=== PATIENT | male | born 1955 | race Caucasian/White ===

== ENCOUNTER → 2023-02-09 09:35 | Outpatient (CLI) | payer MEDICARE, OTHER, SELFPAY ==
--- NOTE | 2023-02-09 09:38 | DI.RAD.S_ITS ---
PROCEDURE: XR KNEE LT 3V INDICATIONS: pain x 6 months. TECHNIQUE: 3 views of the knee were acquired. COMPARISON: None. FINDINGS: Bones: No fractures or dislocations. No suspicious bony lesions. Soft tissues: Moderate to large suprapatellar joint effusion. No suspicious soft tissue calcifications. IMPRESSION: No left knee fracture or dislocation. Moderate to large joint effusion. Consider MRI of knee for further evaluation of internal derangement. Dictated by: Gustavo Pierce M.D. on 02/09/2023 at 10:39 Approved by: Gustavo Pierce M.D. on 02/09/2023 at 10:39
== END ==
PROVIDERS: PCP Family Medicine; Referring Provider Family Medicine; Visit Provider Family Medicine
DX: M25.562 Pain in left knee (principal); M25.462 Effusion, left knee
CPT/HCPCS: 73562

== ENCOUNTER → 2023-04-13 07:06 | Outpatient (CLI) | payer MEDICARE, OTHER, SELFPAY ==
--- NOTE | 2023-04-13 07:07 | DI.MRI.S_ITS ---
PROCEDURE: MR KNEE LT WO CON INDICATIONS: persistent Lt knee pain TECHNIQUE: Noncontrast sagittal PD fast spin echo and T2 fast spin echo with fat saturation, sagittal 3-D FLASH with fat saturation; coronal T1 spin echo and PD fast spin echo with fat saturation, and axial PD fast spin echo with fat saturation through the knee. COMPARISON: [facility], CR, XR KNEE LT 3V, 02/09/2023, 9:34. FINDINGS: Image quality: Excellent. Menisci: Medial extrusion of the medial meniscus is present. Linear oblique and amorphous high signal intensity within the inner, middle, and peripheral thirds of the medial meniscal body and posterior horn, demonstrating superior and inferior articular surface extension, indicating complex tearing. Lateral meniscus is intact. Cruciate ligaments: The anterior and posterior cruciate ligaments appear intact. Medial structures: The medial collateral ligament appears intact. Visualized portions of the pes anserinus tendons appear normal. No abnormal bursal fluid. Lateral structures: The lateral collateral ligament, long and short heads of the biceps femoris tendon appear intact. The popliteus tendon appears normal. Iliotibial band appears normal. Anterior structures: The quadriceps and patellar tendons appear intact. Patellar alignment is normal. No femoral trochlear dysplasia or ventral trochlear prominence. No edema in the infrapatellar fat pad. Bones and cartilage: There is moderate ill-defined T2 signal elevation within the mid weight-bearing aspects of the medial femoral condyle and medial tibial plateau. Mild subchondral degenerative marrow edema within the lateral patellar facet. Mild tricompartmental periarticular osteophyte formation. Severe articular cartilage loss diffusely overlies the weight-bearing aspects of the medial femoral condyle and medial tibial plateau. Mild articular cartilage loss diffusely overlies the weight-bearing aspects of the lateral femoral condyle and lateral tibial plateau. Articular cartilage fibrillation overlies the patellar apex and lateral patellar facet. Joint space: There is a moderate knee joint effusion and a small Welsh's cyst. Normal appearing synovial plicae are incidentally noted. IMPRESSION: 1. Tricompartmental osteoarthritis with associated articular cartilage loss. 2. Complex tearing of the medial meniscus. 3. Knee joint effusion and Welsh's cyst. Dictated by: Hood Talbot M.D. on 04/13/2023 at 9:33 Approved by: Hood Talbot M.D. on 04/13/2023 at 9:36
== END ==
PROVIDERS: PCP Family Medicine; Referring Provider Family Medicine; Visit Provider Family Medicine
DX: S83.232A Complex tear of medial meniscus, current injury, left knee, initial encounter (principal); M17.12 Unilateral primary osteoarthritis, left knee; M25.569 Pain in unspecified knee; M25.462 Effusion, left knee; M71.22 Synovial cyst of popliteal space [Baker], left knee
CPT/HCPCS: 73721

== ENCOUNTER → 2023-08-18 15:07 | Outpatient (CLI) | payer MEDICARE, OTHER, SELFPAY ==
[2023-08-18 17:56] LABS: Add Manual Diff / Slide Review NO; Basophils Absolute Auto 100 /uL (0-100); Basophils Percent Auto 0.8 % (0-2); Eosinophils Absolute Auto 100 /uL (0-450); Eosinophils Percent Auto 1.8 % (2-4); Hemoglobin 14.9 g/dL (13.5-17.5); Lymphocytes Absolute Auto 1800 /uL (1100-4500); Lymphocytes Percent Auto 29.4 % (25-40); Mean Corpuscular HGB Conc 33.8 % (30-36); Mean Corpuscular Hemoglobin 29.8 PG (26-34); Mean Corpuscular Volume 88.3 fL (80-100); Monocytes Absolute Auto 600 /uL (0-900); Neutrophils Absolute Auto 3600 /uL (1500-7000); Platelet Count 202 X10^3/uL (150-400); Red Blood Cell Count 4.99 X10^6/uL (4.5-5.9); Red Cell Distribution Width 14.1 % (11.6-14.8); White Blood Cell Count 6.2 X10^3/uL (4.5-11.0)
[2023-08-18 18:05] LABS: Hemoglobin A1C% w Est Avg Glu 5.6 % (4.0-6.0)
[2023-08-18 18:08] LABS: Alanine Aminotransferase 23 IU/L (<50); Albumin 4.4 g/dL (3.5-5.0); Albumin Globulin Ratio 1.5 (1.0-2.8); Alkaline Phosphatase 57 U/L (38-126); Aspartate Aminotransferase 33 IU/L (17-59); Blood Urea Nitrogen 18 mg/dL (9-20); Calcium 9.5 mg/dL (8.4-10.2); Carbon Dioxide 30 mmol/L (22-32); Chloride 102 mmol/L (98-107); Cholesterol 169 mg/dL (140-199); Estimated Glomerular Filt Rate > 60 mL/min (>60); Glucose 82 mg/dL (80-110); HDL Cholesterol 92 mg/dL (40-60); HEMOLYSIS < 15 (0-50); LDL Cholesterol Calculated 64 mg/dL (<100); Potassium 4.4 mmol/L (3.4-5.1); Sodium 136 mmol/L (137-145); Total Protein 7.4 g/dL (6.3-8.2); Triglycerides 64 mg/dL (35-150)
[2023-08-18 18:39] LABS: Prostate Specific Antigen Scrn 1.37 ng/mL (0.1-4.0)
== END ==
LOC: RESP 15:09
PROVIDERS: PCP Family Medicine; Referring Provider Family Medicine; Visit Provider Family Medicine
DX: Z00.00 Encounter for general adult medical examination without abnormal findings (principal); Z01.818 Encounter for other preprocedural examination; E78.5 Hyperlipidemia, unspecified; I10 Essential (primary) hypertension; Z12.5 Encounter for screening for malignant neoplasm of prostate
CPT/HCPCS: 36415; 80053; 80061; 83036; 85025; 93005; G0103

== ENCOUNTER 2024-03-30 06:41 | Day surgery (SDC) | payer MEDICARE, OTHER, SELFPAY ==
[2024-03-30 07:04] VITALS: BP 145/82; PULSE 69; RESP 18; TEMP 36.2; O2SAT 99
[2024-03-30] MEDS: LACTATED RINGERS 1,000 ML 42 ML IV (07:10)
--- NOTE | 2024-03-30 07:35 | PM.HP.1 ---
History of Present Illness History of Present Illness Date Patient Seen: 03/30/24 Time Patient Seen: 07:35 Chief complaint: EGD & Colonoscopy w/poss bx's Narrative: Leonid is a 68-year-old man with dysphagia and a history of polyps. See the prior office note for details. [facility] Medical History Benign essential HTN Encounter for subsequent annual wellness visit (AWV) in Medicare patient Acne (~1969) History of multiple concussions Chicken pox (~1964) GERD (gastroesophageal reflux disease) (~1999) Esophageal ring (~2009) Surgical History Anesthesia History of appendectomy (~1971) Family History Father History of heart disease Mother History of heart disease Sister History of heart disease Grandmother History of heart disease Social History Smoking Status: Former smoker alcohol intake: current Meds Home Medications and Allergies Home Medications Medication Instructions Recorded Confirmed Type losartan 25 mg tablet 25 mg PO DAILY blood pressure #90 08/18/23 03/30/24 Rx tabs rosuvastatin 40 mg tablet 40 mg PO DAILY #90 tabs 08/18/23 03/30/24 Rx amoxicillin 500 mg-potassium 1 tab PO Q12H #3 tabs 03/29/24 03/30/24 Rx clavulanate 125 mg tablet (Augmentin) aspirin 81 mg tablet 81 mg PO DAILY 03/30/24 03/30/24 History Allergies Allergy/AdvReac Type Severity Reaction Status Date / Time No Known Drug Allergies Allergy Verified 03/30/24 07:00 Exam Vital Signs (past 8 hours): - 03/30/24 07:04 Temperature 97.1 F L Pulse Rate 69 Respiratory Rate 18 Blood Pressure 145/82 H Pulse Oximetry 99 Oxygen Delivery Method Room Air Oxygen Delivery Method Room Air Const General: healthy appearing Assessment & Plan Assessment and plan (1) Dysphagia: Qualifiers: Dysphagia type: esophageal phase Qualified Code(s): R13.19 - Other dysphagia Status: Acute (2) History of colon polyps: Status: Acute Plan We reviewed the risks and benefits of EGD with possible dilation and colonoscopy and he would like to proceed. Time-Based Coding :: [TOTAL MINUTES] spent with patient and on the chart (including review of chart, obtaining history, exam, reviewing outside data, placing orders, documenting exam and treatment plan, and counseling patient) on [DATE].
[2024-03-30 08:08] VITALS: BP 104/73; PULSE 68; RESP 17; TEMP 36.2; O2SAT 94
[2024-03-30 08:13] VITALS: BP 105/74; PULSE 67; RESP 14; O2SAT 93
--- NOTE | 2024-03-30 08:13 | PM.OP.EC ---
Operative Date/Time/Diagnoses Date of procedure: 03/30/24 Time of procedure: 08:13 Pre-op diagnosis: Dysphagia and history of polyps Post-op diagnosis: same Procedure & Clinicians Study performed: EGD and colonoscopy Same procedure as scheduled: Yes Surgeon: Alexander Guillermo Procedure Notes Procedure in detail: Surgeon: Alexander Guillermo MD Anesthesia: Luz Elena Louis CRNA Procedure in detail: A timeout was performed. A bite blocked was placed and monitors were attached to the patient. The patient was positioned in the left lateral decubitus position. Sedation was administered. Once the patient was sedated the endoscope was inserted through the bite block and passed through the esophagus and stomach and into the duodenum. No abnormalities were identified. We then withdrew the scope into the stomach. No abnormalities were identified in the stomach. The endoscope was retroflexed and no hiatal hernia was seen. The endoscope was straightned and withdrawn into the esophagus. There were no abnormalities in the esophagus. Specifically, there was no stricture or esophagitis. EGD findings: Normal EGD Next we repositioned the patient for a colonoscopy. A digital rectal exam was performed and was normal. The colonoscope was inserted and advanced to the cecum. The appendiceal orifice was identified and photographed. The scope was slowly withdrawn over greater than 6 minutes. No polyps were identified. There was moderate sigmoid colon diverticulosis. The scope was retroflexed in the rectum and some internal hemorrhoids were noted. Colonoscopy findings: Moderate sigmoid colon diverticulosis, internal hemorrhoids Total procedural EBL: 0 Scope withdrawal time: [] Sedation minutes: [] Post-procedure Recommendations: Colonscopy in 10 years Disposition: PACU
[2024-03-30 08:18] VITALS: BP 131/68; PULSE 67; RESP 10; O2SAT 97
[2024-03-30 08:24] VITALS: BP 114/91; PULSE 60; RESP 12; TEMP 36.2; O2SAT 98
== END 2024-03-30 08:45 | disposition home or self-care (01) ==
PROVIDERS: PCP Family Medicine; Referring Provider Surgery; Visit Provider Surgery
PROC: 0DJ08ZZ Inspection of Upper Intestinal Tract, Via Natural or Artificial Opening Endoscopic (ICD-10-PCS; CPT 43235; principal; 2024-03-30 07:45)
PROC: 0DJD8ZZ Inspection of Lower Intestinal Tract, Via Natural or Artificial Opening Endoscopic (ICD-10-PCS; CPT 45378; 2024-03-30 07:45)
DX: R13.19 Other dysphagia (principal); Z86.010 Personal history of colon polyps; K57.30 Diverticulosis of large intestine without perforation or abscess without bleeding; K64.8 Other hemorrhoids
CPT/HCPCS: 45378; 43235; J2704

== ENCOUNTER → 2024-08-10 10:39 | Outpatient (CLI) | payer MEDICARE, OTHER, SELFPAY ==
[2024-08-10 12:15] LABS: Alanine Aminotransferase 31 IU/L (<50); Albumin 4.6 g/dL (3.5-5.0); Albumin Globulin Ratio 1.8 (1.0-2.8); Alkaline Phosphatase 55 U/L (38-126); Aspartate Aminotransferase 46 IU/L (17-59); Bilirubin Total 1.1 mg/dL (0.2-1.3); Blood Urea Nitrogen 16 mg/dL (9-20); Calcium 9.2 mg/dL (8.4-10.2); Carbon Dioxide 29 mmol/L (22-32); Chloride 103 mmol/L (98-107); Cholesterol 170 mg/dL (140-199); Estimated Glomerular Filt Rate > 60 mL/min (>60); Globulin 2.6 g/dL (1.7-4.1); Glucose 120 mg/dL (80-110); HDL Cholesterol 106 mg/dL (40-60); HEMOLYSIS < 15 (0-50); LDL Cholesterol Calculated 53 mg/dL (<100); Potassium 4.6 mmol/L (3.4-5.1); Sodium 137 mmol/L (137-145); Total Protein 7.2 g/dL (6.3-8.2); Triglycerides 54 mg/dL (35-150)
[2024-08-10 12:45] LABS: Prostate Specific Antigen Scrn 1.76 ng/mL (0.1-4.0)
[2024-08-10 17:08] LABS: Hep C Virus Ab w/Reflex Quant NEGATIVE s/c (NEGATIVE)
== END ==
PROVIDERS: PCP Family Medicine; Referring Provider Family Medicine; Visit Provider Family Medicine
DX: Z00.00 Encounter for general adult medical examination without abnormal findings (principal); I10 Essential (primary) hypertension; Z12.5 Encounter for screening for malignant neoplasm of prostate
CPT/HCPCS: 36415; 80053; 80061; 86803; G0103

== ENCOUNTER 2024-08-17 20:38 | Emergency (ER) | payer MEDICARE, OTHER, SELFPAY ==
[2024-08-17] VITALS (8 sets, daily range): BP systolic 122–152; BP diastolic 67–83; PULSE 65–80; RESP 15–26; TEMP 36.4; O2SAT 94–99; BMI 24.3
--- NOTE | 2024-08-17 20:41 | EKG_ITS ---
[address] [address] [place] [address] Test Date: 2024-08-17 Pat Name: Shukri Hensley Department: [facility] Room: Gender: Male [employer] Agent: CAROLINE MIR : 1955 Requested By: Order Number: [id number] Reading MD: Iglesia Smiley Measurements Intervals [place] Rate: 70 P: VT: QRS: 46 QRSD: 94 T: 12 QT: 376 QTc: 406 Interpretive Statements Atrial fibrillation Incomplete right bundle branch block Electronically Signed On 08-18-2024 12:55:41 PST by Iglesia Smiley
--- NOTE | 2024-08-17 20:54 | DI.RAD.S_ITS ---
PROCEDURE: XR CHEST 1V INDICATIONS: Atrial fibrillation TECHNIQUE: One view of the chest was acquired. COMPARISON: None. FINDINGS: Surgical changes and devices: None. Lungs and pleura: Lungs are clear. No pleural effusions or pneumothorax. Mediastinum: Mediastinal contours appear normal. Heart size is normal. Bones and chest wall: No suspicious bony lesions. Overlying soft tissues appear unremarkable. IMPRESSION: No acute pulmonary process. Dictated by: Génesis Johnson M.D. on 08/17/2024 at 21:22 Approved by: Génesis Johnson M.D. on 08/17/2024 at 21:23
[2024-08-17 21:03] LABS: Add Manual Diff / Slide Review NO; Basophils Absolute Auto 100 /uL (0-100); Basophils Percent Auto 1.1 % (0-2); Eosinophils Absolute Auto 200 /uL (0-450); Eosinophils Percent Auto 2.5 % (2-4); Hematocrit 45.6 % (41-53); Hemoglobin 15.4 g/dL (13.5-17.5); Lymphocytes Absolute Auto 2300 /uL (1100-4500); Lymphocytes Percent Auto 34.9 % (25-40); Mean Corpuscular HGB Conc 33.7 % (30-36); Mean Corpuscular Hemoglobin 31.1 PG (26-34); Mean Corpuscular Volume 92.2 fL (80-100); Monocytes Absolute Auto 800 /uL (0-900); Monocytes Percent Auto 11.7 % (3-14); Neutrophils Absolute Auto 3300 /uL (1500-7000); Neutrophils Percent Auto 49.8 % (50-75); Platelet Count 208 X10^3/uL (150-400); Red Blood Cell Count 4.95 X10^6/uL (4.5-5.9); Red Cell Distribution Width 13.7 % (11.6-14.8); White Blood Cell Count 6.7 X10^3/uL (4.5-11.0)
[2024-08-17 21:15] LABS: Alanine Aminotransferase 32 IU/L (<50); Albumin 4.7 g/dL (3.5-5.0); Albumin Globulin Ratio 1.7 (1.0-2.8); Alkaline Phosphatase 47 U/L (38-126); Aspartate Aminotransferase 38 IU/L (17-59); BUN Creatinine Ratio 19.8 (6-22); Bilirubin Total 0.6 mg/dL (0.2-1.3); Blood Urea Nitrogen 19 mg/dL (9-20); Calcium 9.4 mg/dL (8.4-10.2); Carbon Dioxide 28 mmol/L (22-32); Chloride 104 mmol/L (98-107); Creatine Kinase 200 U/L (55-170); Estimated Glomerular Filt Rate > 60 mL/min (>60); Globulin 2.7 g/dL (1.7-4.1); Glucose 94 mg/dL (80-110); HEMOLYSIS 16 (0-50); Lipase 80 U/L (23-300); Magnesium 1.8 mg/dL (1.6-2.3); Potassium 4.8 mmol/L (3.4-5.1); Sodium 140 mmol/L (137-145); Total Protein 7.4 g/dL (6.3-8.2)
[2024-08-17 21:27] LABS: Troponin I < 0.012 ng/mL (0.01-0.034)
--- NOTE | 2024-08-17 21:41 | ED_ITS ---
HPI - Arrhythmia/Palpitations General Chief Complaint: Arrhythmia/Palpitations Stated Complaint: watch says he is in AFib Time Seen by Provider: 08/17/24 20:53 Source: patient and family Mode of arrival: Ambulatory History of Present Illness HPI narrative: patient was a 69-year-old male. No prior history of atrial fibrillation. No prior history of coronary artery disease. Is here for evaluation of potentially being in AFib. He states that his happen watch alarm earlier today stating that he was in an irregular heart rhythm. He states the time he was not feeling palpitations. Has had some occasional lightheadedness today but nothing currently. No chest pain. No shortness of breath. No lower extremity swelling. He states he does not feel like his heart is beating fast. Related Data Home Medications Medication Instructions Recorded Confirmed aspirin 81 mg tablet 81 mg PO DAILY 03/30/24 08/17/24 Previous Rx's Medication Instructions Recorded losartan 25 mg tablet 25 mg PO DAILY blood pressure #90 08/17/24 tabs rosuvastatin 40 mg tablet 40 mg PO DAILY #90 tabs 08/17/24 apixaban 5 mg tablet (Eliquis) 5 mg PO BID #60 tabs 08/18/24 metoprolol succinate 25 mg 25 mg PO DAILY #30 tabs 08/18/24 tablet,extended release 24 hr Allergies Allergy/AdvReac Type Severity Reaction Status Date / Time No Known Drug Allergies Allergy Verified 08/17/24 10:20 Review of Systems Review of Systems ROS Unobtainable: All systems reviewed & are unremarkable except as noted in HPI and below Patient History Medical History Hyperlipidemia, unspecified Benign essential HTN Encounter for subsequent annual wellness visit (AWV) in Medicare patient Acne (~1969) History of multiple concussions Chicken pox (~1964) GERD (gastroesophageal reflux disease) (~1999) Esophageal ring (~2009) Surgical History Anesthesia History of appendectomy (~1971) Family History Father History of heart disease Mother History of heart disease Sister History of heart disease Grandmother History of heart disease Social History Smoking Status: Former smoker alcohol intake: current Smoking Status: Former smoker alcohol intake frequency: 0-2 drinks per day Exam Initial Vital Signs Initial Vital Signs: Vital Signs Temperature 97.5 F L 08/17/24 20:42 Pulse Rate 65 08/17/24 20:42 Respiratory Rate 18 08/17/24 20:42 Blood Pressure 152/83 H 08/17/24 20:42 Pulse Oximetry 97 08/17/24 20:42 Oxygen Delivery Method Room Air 08/17/24 20:42 Const General: cooperative, comfortable and No ill appearing HENMT Head: normal to inspection and normocephalic Resp Effort & Inspection: normal respiratory effort Auscultation: clear to auscultation bilaterally Cardio Rate: regular rate Rhythm: abnormal rhythm GI Inspection: normal to inspection Skin General: no rashes or lesions noted Neuro General: patient alert, patient awake, patient oriented x3 and moves all extremities Extrem General: normal to inspection and capillary refill normal Course Orders Ordered: ED Orders 08/17/24 20:41 EKG-12 Lead Stat 08/17/24 20:54 XR chest 1V Stat 08/17/24 20:55 Complete Blood Count AUTO DIFF Stat Comprehensive Metabolic Panel Stat Lipase Stat Magnesium Stat TSH [Thyroid Stimulating Hormone] Stat Troponin & CK Cardiac Panel Stat 08/17/24 23:05 Troponin & CK Cardiac Panel Stat Discontinued Medications Apixaban (Apixaban 5 Mg Tablet) 5 mg PO NOW ONE Stop: 08/18/24 00:10 Last Admin: 08/18/24 00:15 Dose: 5 mg Documented By: TERRY Metoprolol Succinate (Metoprolol Er 25 Mg Tablet) 25 mg PO NOW ONE Stop: 08/18/24 00:10 Last Admin: 08/18/24 00:15 Dose: 25 mg Documented By: TERRY Vital Signs Vital signs: Vital Signs - 8 hr 08/17/24 20:42 08/17/24 20:57 08/17/24 21:00 Temperature 97.5 F L Pulse Rate 65 77 73 Respiratory Rate 18 26 H 23 Blood Pressure 152/83 H Pulse Oximetry 97 99 99 Oxygen Delivery Method Room Air 08/17/24 21:30 08/17/24 22:00 08/17/24 23:00 Temperature Pulse Rate 80 72 76 Respiratory Rate 25 H 21 15 Blood Pressure Pulse Oximetry 95 94 94 Oxygen Delivery Method 08/17/24 23:07 08/17/24 23:07 08/17/24 23:30 Temperature Pulse Rate 74 Respiratory Rate 22 Blood Pressure 130/67 122/71 Pulse Oximetry 96 Oxygen Delivery Method Room Air 08/17/24 23:30 08/18/24 00:00 08/18/24 00:00 Temperature Pulse Rate 75 79 Respiratory Rate 15 18 Blood Pressure 117/77 Pulse Oximetry 95 96 Oxygen Delivery Method 08/18/24 00:15 Temperature Pulse Rate 77 Respiratory Rate Blood Pressure 117/77 Pulse Oximetry Oxygen Delivery Method MDM - Arrhythmia/Palpitations Lab Data Attestation: I reviewed the patient's lab results. 08/17/24 20:55 08/17/24 20:55 Labs: Lab Results 08/17/24 08/17/24 Range/Units 20:55 23:05 WBC 6.7 (4.5-11.0) X10^3/uL RBC 4.95 (4.5-5.9) X10^6/uL Hgb 15.4 (13.5-17.5) g/dL Hct 45.6 (41-53) % MCV 92.2 (80-100) fL MCH 31.1 (26-34) PG MCHC 33.7 (30-36) % RDW 13.7 (11.6-14.8) % Plt Count 208 (150-400) X10^3/uL Neut % (Auto) 49.8 L (50-75) % Lymph % (Auto) 34.9 (25-40) % [place] % (Auto) 11.7 (3-14) % Eos % (Auto) 2.5 (2-4) % Baso % (Auto) 1.1 (0-2) % Neut # (Auto) 3300 (0640-8143) /uL Lymph # (Auto) 2300 (1115-4423) /uL [place] # (Auto) 800 (0-900) /uL Eos # (Auto) 200 (0-450) /uL Baso # (Auto) 100 (0-100) /uL Sodium 140 (137-145) mmol/L Potassium 4.8 (3.4-5.1) mmol/L Chloride 104 (98-107) mmol/L Carbon Dioxide 28 (22-32) mmol/L BUN 19 (9-20) mg/dL Creatinine 0.96 (0.66-1.25) mg/dL Estimated GFR > 60 (>60) mL/min BUN/Creatinine Ratio 19.8 (6-22) Glucose 94 (80-110) mg/dL Calcium 9.4 (8.4-10.2) mg/dL Magnesium 1.8 (1.6-2.3) mg/dL Total Bilirubin 0.6 (0.2-1.3) mg/dL AST 38 (17-59) IU/L ALT 32 (<50) IU/L Alkaline Phosphatase 47 (38-126) U/L Total Creatine Kinase 200 H 197 H (55-170) U/L Troponin I < 0.012 < 0.012 (0.01-0.034) ng/mL Total Protein 7.4 (6.3-8.2) g/dL Albumin 4.7 (3.5-5.0) g/dL Globulin 2.7 (1.7-4.1) g/dL Albumin/Globulin Ratio 1.7 (1.0-2.8) Lipase 80 (23-300) U/L TSH 2.33 (0.47-4.68) uIU/mL Imaging Data Chest x-ray: Radiologist's Impresson: PROCEDURE: XR CHEST 1V INDICATIONS: Atrial fibrillation TECHNIQUE: One view of the chest was acquired. COMPARISON: None. FINDINGS: Surgical changes and devices: None. Lungs and pleura: Lungs are clear. No pleural effusions or pneumothorax. Mediastinum: Mediastinal contours appear normal. Heart size is normal. Bones and chest wall: No suspicious bony lesions. Overlying soft tissues appear unremarkable. IMPRESSION: No acute pulmonary process. ECG Data Attestation: I personally reviewed and interpreted this ECG as follows: Interpretation: Atrial fibrillation Ventricular rate is 70 Normal axis Normal QRS Normal QTC No ST T wave changes MDM Narrative Medical decision making narrative: Patient is in atrial fibrillation but is rate controlled. Blood pressure is unremarkable. He was relatively asymptomatic and states he was not feeling palpitations or chest pain or lightheadedness currently. His watch informed him that he went into AFib at about 530 this afternoon although we can not be convinced his to when he exactly went into AFib. He did have a routine appointment with his primary doctor earlier in the day where he states that they did listen to his heart but no EKG was performed. Because of the uncertainty as to when he went into AFib he was not a candidate for cardioversion here in the emergency department. His labs and troponin are unremarkable. He was no signs of an infection. Low suspicion for ACS. Will place the patient on metoprolol and Eliquis. Because he was stable and rate controlled patient can follow-up as an outpatient. Recommended that he contact Cardiology and also his primary doctor for a follow-up. He expressed understanding and agreement with the plan. Discharge Plan Departure Patient Disposition: Home Clinical Impression: Atrial fibrillation Instructions: DI for Atrial Fibrillation Activity Restrictions/Additional Instructions: Continue to take all of your medications as directed. We are going to start you on 2 new medications. The 1st medication is called metoprolol. This is 1 time a day. This will help with keeping your heart rate low. The 2nd medicine is called Eliquis/apixaban. This is a blood thinner. This medication is taken twice a day. This medication can be very expensive so I recommend that you look up? Eliquis co-pay card? and fell out the information. This will provide information for you in order to receive the medication at a significant discount. I also recommend you contact your primary care doctor in the sql ssrs ssis developer below for a follow-up. Return to the emergency department for new symptoms to include chest pain, lightheadedness, shortness of breath or persistent heart rate greater than 100 beats per minute Prescriptions: New Eliquis 5 mg tablet 5 mg PO BID Qty: 60 0RF metoprolol succinate 25 mg tablet extended release 24 hr 25 mg PO DAILY Qty: 30 0RF No Action losartan 25 mg tablet 25 mg PO DAILY Qty: 90 3RF rosuvastatin 40 mg tablet 40 mg PO DAILY Qty: 90 3RF aspirin 81 mg Tablet 81 mg PO DAILY Referrals: Agatha Thornton MD [Physician] - Leatha Luke DO [Primary Care Provider] - Stand Alone Forms: Patient Portal/API/Survey
[2024-08-17 22:28] LABS: Thyroid Stimulating Hormone 2.33 uIU/mL (0.47-4.68)
[2024-08-17 23:24] LABS: Creatine Kinase 197 U/L (55-170)
[2024-08-17 23:37] LABS: Troponin I < 0.012 ng/mL (0.01-0.034)
[2024-08-18] VITALS: BP 117/77; PULSE 79; RESP 18; O2SAT 96
[2024-08-18 00:15] VITALS: BP 117/77; PULSE 77
[2024-08-18] MEDS: METOPROLOL ER 25 MG TABLET PO (00:15)
[2024-08-18] MEDS: APIXABAN 5 MG TABLET PO (00:15)
== END 2024-08-18 00:28 | disposition home or self-care (01) ==
PROVIDERS: Emergency Provider Emergency Medicine; PCP Family Medicine
DX: I48.91 Unspecified atrial fibrillation (principal); Z79.01 Long term (current) use of anticoagulants; I10 Essential (primary) hypertension
CPT/HCPCS: 36415; 71045; 80053; 82550; 83690; 83735; 84443; 84484; 85025; 93005; 99284

== ENCOUNTER → 2024-09-11 06:50 | Outpatient (CLI) | payer MEDICARE, OTHER, SELFPAY ==
--- NOTE | 2024-09-11 06:51 | DI.ECHO.S_ITS ---
[facility]+ [facility] : : [address] : : [place] : : [id number] : : Phone: [phone] Echocardiogram Report + + :Name: JOHN BARBOSA JR Study Date: 09/11/2024 Height: 74 in : :[facility] ReadingLocation: Weight: 190 lb : : Gender: Male BSA: 2.1 m2 : :: 1955 Age: 69 yrs BP: 149/96 mmHg: :Reason For Study: ATRIAL FIBRILLATION : :Ordering Physician: FARIDEH NEWSOME Performed By: Lionel Polanco : :Referring: FARIDEH NEWSOME : + + Interpretation Summary The left ventricle is normal in size. Left ventricular systolic function is mildly reduced. The ejection fraction is estimated to be 40-45%. Diastolic function could not be accurately assessed due to atrial fibrillation. The right ventricle is normal size. Right ventricular systolic function is mildly reduced. The right ventricular systolic pressure is estimated to be at least 25 mmHg based on an estimated right atrial pressure of 3 mm Hg. The left atrium is severely dilated. The right atrium is severely dilated. There is mild mitral regurgitation. There is no other significant valvular heart disease. The aortic root is normal size. A-fib is present with mild RVR. 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 Procedure: A two-dimensional transthoracic echocardiogram with color flow and Doppler was performed. The study quality was technically good. There is no prior echocardiogram noted for this patient. The patient was in atrial fibrillation with heart rates between 70-108 bpm during the exam. Left Ventricle: The left ventricle is normal in size. Left ventricular wall thickness is mildly increased. There is no ventricular septal defect visualized. Left ventricular systolic function is mildly reduced. The ejection fraction is estimated to be 40-45%. There is mild global hypokinesis of the left ventricle. Diastolic function could not be accurately assessed due to atrial fibrillation. Right Ventricle: The right ventricle is normal size. Right ventricular systolic function is mildly reduced. Atria: The left atrium is severely dilated. The right atrium is severely dilated. The interatrial septum grossly appears intact with no obvious evidence for an atrial septal defect. Mitral Valve: The mitral valve leaflets appear mildly thickened, but open well. The mitral valve leaflets are slightly calcified. There is mild mitral regurgitation. Aortic Valve: The aortic valve is trileaflet. The aortic valve opens well. No aortic regurgitation is present. Tricuspid Valve: The tricuspid valve leaflets are thickened and/or calcified, but open well. There is trace tricuspid regurgitation. The right ventricular systolic pressure is estimated to be at least 25 mmHg based on an estimated right atrial pressure of 3 mm Hg. Pulmonic Valve: The pulmonic valve leaflets are thin and pliable; valve motion is normal. There is a trace or physiologic amount of pulmonic regurgitation. There is no other significant valvular heart disease. Great Vessels: The aortic root is normal size. The dimensions of the ascending aorta are normal. The pulmonary artery is normal size. The IVC is of normal diameter and collapses greater than 50% with a sniff. This suggests a low right atrial pressure of 3 mm Hg. Pericardium/ Pleura There is no pericardial effusion. There is no pleural effusion. MMode/2D Measurements & Calculations LVIDd: 4.9 cm LVOT diam: 2.4 cm LVIDs: 3.4 cm Ao root diam: 3.6 cm FS: 30.5 % asc Aorta Diam: 3.2 cm EPSS: 0.98 cm IVSd: 1.2 cm LVPWd: 1.2 cm LV davies. diameter/BSA (cm/m^2): 2.3 LV sys. diameter/BSA (cm/m^2): 1.6 LA A2 area: 30.0 cm2 RA long axis: 6.8 cm LA A4 area: 31.7 cm2 RA area: 30.5 cm2 LA length (vol): 7.3 cm RA vol: 115.5 ml LA vol: 110.6 ml RA : 54.3 ml/m2 LA vol index: 52.0 ml/m2 IVC diam: 1.8 cm RVD1 (basal): 3.8 cm RVD2 (mid): 2.9 cm TAPSE: 1.6 cm Doppler Measurements & Calculations Ao V2 max: 112.5 cm/sec LVOT Max Patel: 90.2 cm/sec Ao V2 mean: 81.8 cm/sec LV V1 max P.3 mmHg Ao max P.1 mmHg LV V1 VTI: 15.3 cm Ao mean P.9 mmHg BRIDGER(I,D): 2.9 cm2 Ao V2 VTI: 23.3 cm BRIDGER(V,D): 3.5 cm2 sev ratio: 0.65 BRIDGER indexed to BSA (cm^2/m^2): 1.4 MV E max patel: 64.6 cm/sec TR max patel: 237.1 cm/sec MV A max patel: 12.3 cm/sec TR max P.5 mmHg MV E/A: 5.2 PA V2 max: 62.3 cm/sec Med Peak E' Patel: 8.3 cm/sec PA V2 mean: 41.0 cm/sec E/E' med: 7.8 PA mean P.76 mmHg Lat Peak E' Patel: 15.9 cm/sec PA pr(Accel): 5.4 mmHg E/E' lat: 4.1 E/e' average: 5.9 MV dec time: 0.23 sec SV(LVOT): 67.4 ml Reading Physician:07:02 AM
== END ==
PROVIDERS: PCP Family Medicine; Referring Provider Family Medicine; Visit Provider Family Medicine
DX: I34.0 Nonrheumatic mitral (valve) insufficiency (principal); I48.91 Unspecified atrial fibrillation
CPT/HCPCS: 93306

== ENCOUNTER 2024-10-13 11:04 | Emergency (ER) | payer MEDICARE, OTHER, SELFPAY ==
[2024-10-13] VITALS (13 sets, daily range): BP systolic 144–165; BP diastolic 79–92; PULSE 49–64; RESP 12–20; TEMP 36.6–36.8; O2SAT 94–100; BMI 24.3
--- NOTE | 2024-10-13 | DI.CT.S_ITS ---
PROCEDURE: CT ANGIO HEAD AND NECK INDICATIONS: BLURRED VISION, CARDIO VERSION YESTERDAY TECHNIQUE: After the administration of intravenous contrast, 1 mm thick sections acquired from the aortic arch through the [place]. 3-dimensional otgscfw-slqbdtucr-aytmrrhraj (MIP) and/or volume rendering reformats were acquired of the central intracranial vasculature and neck separately. For radiation dose reduction, the following was used: automated exposure control, adjustment of mA and/or kV according to patient size. COMPARISON: [facility], CT, CT STROKE, 10/13/2024, 11:29. FINDINGS: Image quality: Diagnostic. BRAIN: CSF spaces: Ventricles are normal in size and shape. Basal cisterns are patent. No extra-axial fluid collections. Brain: No significant abnormality of the brain can be seen. Skull and face: Calvarium and facial bones appear intact, without suspicious lesions. Orbits appear normal. Sinuses: Sinuses and mastoids are clear. HEAD CT ANGIOGRAPHY: Anterior circulation: Intracranial internal carotid arteries are normal in size and flow. The flow within the paired anterior cerebral arteries is normal and symmetric. The flow within the middle cerebral arteries is normal and symmetric. The anterior communicating artery is seen. No aneurysms are seen. Posterior circulation: Visualized portions of the vertebral arteries demonstrate normal caliber, and join to form a normal appearing basilar artery. Flow within the posterior cerebral arteries is normal and symmetric. No aneurysms are seen. NECK CT ANGIOGRAPHY: Carotid system: The great vessels demonstrate a conventional anatomy as they arise from the aortic arch. The origins of the common carotid arteries appear patent. The common carotid arteries demonstrate normal caliber and courses. The bifurcation regions are both widely patent. The internal carotid arteries demonstrate normal calibers and courses. Posterior circulation: The origins of the vertebral arteries both appear widely patent. The more superior extracranial portions of both vertebral arteries also demonstrate normal courses and calibers. They join to form a normal appearing basilar artery. Soft tissues: Visualized neck soft tissues demonstrate no suspicious abnormalities. Bones: No suspicious bony lesions. Visualized cervical spine appears normally aligned. IMPRESSION: No significant intracranial arterial abnormality is seen. No significant abnormality is seen within the arteries of the neck. Any quantitative measurements of stenosis were performed using NASCET criteria. Dictated by: Anthony Garsia M.D. on 10/13/2024 at 11:46 Approved by: Anthony Garsia M.D. on 10/13/2024 at 11:48
--- NOTE | 2024-10-13 11:17 | DI.RAD.S_ITS ---
PROCEDURE: XR CHEST 1V INDICATIONS: altered mental status TECHNIQUE: One view of the chest was acquired. COMPARISON: [facility], CR, XR CHEST 1V, 08/17/2024, 20:51. FINDINGS: Surgical changes and devices: None. Lungs and pleura: Interstitial pulmonary edema. No pleural effusions or pneumothorax. Mediastinum: Mediastinal contours appear normal. Heart size is mildly enlarged. Bones and chest wall: No suspicious bony lesions. Overlying soft tissues appear unremarkable. IMPRESSION: Mild congestive heart failure. Dictated by: Anthony Garsia M.D. on 10/13/2024 at 11:42 Approved by: Anthony Garsia M.D. on 10/13/2024 at 11:43
--- NOTE | 2024-10-13 11:21 | ED_ITS ---
HPI - General Adult General Chief complaint: Neuro Symptoms/Deficit Stated complaint: Blurred Vision , Light headed ,High blood pressure Time Seen by Provider: 10/13/24 11:20 History of Present Illness HPI narrative: 69-year-old male right-handed with no prior history of stroke/TIA problems, history of atrial fibrillation diagnosed July 2024, was started on Eliquis and sotalol, followed by area show card writer Dr. Pierce, in fact saw his show card writer yesterday for elective cardioversion, successful with 1 shock, went home. Last known well 1030 this morning on return to [facility], when he had sensation of left visual field blurred vision, with some floaty sensation, on closing his affected left eye he also seemed to have some blurred vision the nasal aspect of his right eye. Then had blurred vision in both eyes, with some improvement in floaty sensation. No headache. No focal weakness to face arm or leg. No focal numbness to face arm or leg. No injury or trauma. He is still taking the Eliquis status post cardioversion, no missed doses. Related Data Previous Rx's Medication Instructions Recorded losartan 25 mg tablet 25 mg PO DAILY blood pressure #90 08/17/24 tabs rosuvastatin 40 mg tablet 40 mg PO DAILY #90 tabs 08/17/24 apixaban 5 mg tablet (Eliquis) 5 mg PO BID #180 tabs 09/12/24 metoprolol succinate 25 mg 25 mg PO DAILY #90 tabs 09/12/24 tablet,extended release 24 hr Allergies Allergy/AdvReac Type Severity Reaction Status Date / Time No Known Drug Allergies Allergy Verified 08/17/24 10:20 Patient History Medical History Hyperlipidemia, unspecified Benign essential HTN Encounter for subsequent annual wellness visit (AWV) in Medicare patient Acne (~1969) History of multiple concussions Chicken pox (~1964) GERD (gastroesophageal reflux disease) (~1999) Esophageal ring (~2009) Surgical History Anesthesia History of appendectomy (~1971) Family History Father History of heart disease Mother History of heart disease Sister History of heart disease Grandmother History of heart disease Social History Smoking Status: Former smoker alcohol intake: current Smoking Status: Former smoker alcohol intake frequency: 0-2 drinks per day Exam Narrative Exam Narrative: GENERAL: Well-developed patient, in mild distress. HEAD: Atraumatic. Normocephalic. EYES: Pupils equal round and reactive. Extraocular motions intact. No scleral icterus. No injection or drainage. ENT: Nose without bleeding, purulent drainage. Throat without erythema, tonsillar hypertrophy or exudate. Airway patent. NECK: Trachea midline. Non tender CARDIOVASCULAR: Regular rate and rhythm without murmurs, gallops, or rubs. RESPIRATORY: Clear to auscultation. Breath sounds equal bilaterally. No wheezes, rales, or rhonchi. GASTROINTESTINAL: Abdomen soft, non-tender, nondistended. EXTREMITIES: No edema or joint tenderness. BACK: Nontender without deformity or crepitance. No flank tenderness. NEURO: AOx3. Cranial nerves intact. Motor 5/5 bilateral upper extremities. Motor 5/5 bilateral lower extremities. Akgskc-ir-pzgx testing bilaterally normal. Sensation intact to light touch face arm leg bilateral. SKIN: No rash or erythema of visible areas Initial Vital Signs Initial Vital Signs: Vital Signs Temperature 98 F 10/13/24 11:06 Pulse Rate 54 L 10/13/24 11:06 Respiratory Rate 20 10/13/24 11:06 Blood Pressure 165/81 H 10/13/24 11:06 Pulse Oximetry 100 10/13/24 11:06 Oxygen Delivery Method Room Air 10/13/24 11:06 Course Orders Ordered: ED Orders 10/13/24 13:02 MR head/brain wo con Stat 10/13/24 14:24 Trop I [Troponin I] Stat Vital Signs Vital signs: Vital Signs - 8 hr 10/13/24 12:30 10/13/24 13:00 10/13/24 13:30 Temperature Pulse Rate 50 L 49 L 53 L Respiratory Rate 15 13 13 Blood Pressure 158/87 H 148/88 H Pulse Oximetry 98 95 97 Oxygen Delivery Method Room Air Room Air 10/13/24 13:30 10/13/24 14:00 10/13/24 14:30 Temperature Pulse Rate 50 L 52 L Respiratory Rate 14 13 Blood Pressure 153/85 H 165/90 H 146/79 H Pulse Oximetry 98 99 Oxygen Delivery Method 10/13/24 15:08 10/13/24 15:54 10/13/24 15:55 Temperature Pulse Rate 58 L 64 61 Respiratory Rate Blood Pressure Pulse Oximetry 97 94 96 Oxygen Delivery Method 10/13/24 15:55 10/13/24 16:03 Temperature 98.2 F Pulse Rate 64 Respiratory Rate 16 Blood Pressure 144/89 H 144/89 H Pulse Oximetry 96 Oxygen Delivery Method Room Air Medical Decision Making Lab Data Lab results reviewed: Yes I reviewed the patient's lab results. Lab results narrative: White blood cell count 5300, hemoglobin 15.4. Platelets adequate. Glucose 106. Normal renal function, normal electrolytes, normal carbon dioxide. T bili 1.5, otherwise liver studies unremarkable. Thompson, sumit [facility] 10/13/24 11:20 10/13/24 11:20 Labs: Lab Results 10/13/24 10/13/24 Range/Units 11:20 14:24 WBC 5.3 (4.5-11.0) X10^3/uL RBC 4.91 (4.5-5.9) X10^6/uL Hgb 15.4 (13.5-17.5) g/dL Hct 45.1 (41-53) % MCV 92.0 (80-100) fL MCH 31.3 (26-34) PG MCHC 34.1 (30-36) % RDW 13.8 (11.6-14.8) % Plt Count 205 (150-400) X10^3/uL Neut % (Auto) 57.9 (50-75) % Lymph % (Auto) 26.9 (25-40) % [place] % (Auto) 10.8 (3-14) % Eos % (Auto) 3.0 (2-4) % Baso % (Auto) 1.4 (0-2) % Neut # (Auto) 3100 (7144-2967) /uL Lymph # (Auto) 1400 (0985-6164) /uL [place] # (Auto) 600 (0-900) /uL Eos # (Auto) 200 (0-450) /uL Baso # (Auto) 100 (0-100) /uL Sodium 139 (137-145) mmol/L Potassium 4.4 (3.4-5.1) mmol/L Chloride 103 (98-107) mmol/L Carbon Dioxide 26 (22-32) mmol/L BUN 15 (9-20) mg/dL Creatinine 0.90 (0.66-1.25) mg/dL Estimated GFR > 60 (>60) mL/min BUN/Creatinine Ratio 16.7 (6-22) Glucose 106 (80-110) mg/dL Calcium 9.7 (8.4-10.2) mg/dL Total Bilirubin 1.5 H (0.2-1.3) mg/dL AST 39 (17-59) IU/L ALT 46 (<50) IU/L Alkaline Phosphatase 51 (38-126) U/L Total Creatine Kinase 69 (55-170) U/L Troponin I < 0.012 < 0.012 (0.01-0.034) ng/mL Total Protein 7.4 (6.3-8.2) g/dL Albumin 4.7 (3.5-5.0) g/dL Globulin 2.7 (1.7-4.1) g/dL Albumin/Globulin Ratio 1.7 (1.0-2.8) Point of Care Testing Glucose POC 114 Point of care testing: Point of Care Testing Glucose POC [address] scan - head: Radiologist's Impression: [place] [address] CT Scan Report Signed Patient: Shukri Hensley Jr MR#: [id number] : 1955 Acct:[id number] Age/Sex: 69 / M Date of Service: 10/13/24 Loc: ED Accession Number: [id number] Procedure: CT Stroke Ordering Provider: Carlos Hernandez MD PROCEDURE: CT STROKE INDICATIONS: ?stroke, blurred vision after cardioversion yeserday TECHNIQUE: Noncontrast 4.5 mm thick angled axial sections acquired from the foramen magnum to the vertex, with coronal reformats. For radiation dose reduction, the following was used: automated exposure control, adjustment of mA and/or kV according to patient size. COMPARISON: None. FINDINGS: Image quality: Diagnostic. CSF spaces: Basal cisterns are patent. No extra-axial fluid collections. The ventricles are symmetric in size and shape. Brain: No intracranial bleeds or masses. There is cerebral volume loss for age, with resultant ventricular and sulcal prominence. There are periventricular and deep white matter chronic small vessel ischemic changes. There is intracranial internal carotid artery atherosclerosis. Skull and face: Calvarium and visualized facial bones appear intact, without suspicious lesions. Sinuses: Visualized sinuses and mastoids are clear. IMPRESSION: No acute intracranial pathology. Comment: Findings were discussed with Dr. Hernandez on 10/13/2024 at 1139 hours This study fulfills neurological imaging criteria for inclusion or exclusion of acute stroke therapies based on available published neurological guidelines. Dictated by: Anthony Garsia M.D. on 10/13/2024 at 11:38 Approved by: Anthony Garsia M.D. on 10/13/2024 at 11:42 MRI brain noncontrast: Radiologist's Impression: [address] [address] Magnetic Resonance Report Signed Patient: Shukri Hensley Jr MR#: [id number] : 1955 Acct:[id number] Age/Sex: 69 / M Date of Service: 10/13/24 Loc: ED Accession Number: [id number] Procedure: MR head/brain wo con Ordering Provider: Carlos Hernandez MD PROCEDURE: MR HEAD/BRAIN WO CON INDICATIONS: Acute vision change, possible stroke TECHNIQUE: Noncontrast axial T1 spin echo, axial T2 fast spin echo, sagittal and axial FLAIR, coronal T2 fast spin echo, axial gradient echo, axial diffusion and ADC through the brain. COMPARISON: [facility], CT, CT STROKE, 10/13/2024, 11:29. FINDINGS: Image quality: Diagnostic CSF spaces: Basal cisterns are patent. Lateral ventricles are symmetric. Volume: Volume loss. Periventricular white matter signal abnormality most commonly seen with small vessel disease. These findings are mild Brain: No acute diffusion restriction. No acute hematoma. Craniofacial structures: Unremarkable partially seen orbits IMPRESSION: No acute infarct. No hematoma identified Dictated by: Lance Velasco M.D. on 10/13/2024 at 15:11 Approved by: Lance Velasco M.D. on 10/13/2024 at 15:13 ECG Data Attestation: I personally reviewed and interpreted this ECG as follows: Interpretation: Sinus bradycardia with rate of 49, no obvious ST segment elevation or depression changes. OR 156, QRS 96, QTC 424. MDM Narrative Medical decision making narrative: 69-year-old male with history of atrial fibrillation on Eliquis, status post elective cardioversion yesterday and [facility], last known well 1030 this morning when he had left visual field warm like floater, then blurred vision to the left than right eyes, without associated headache. Concern for possible stroke. Symptoms are significantly improved, nearly resolved. Stroke alert at triage. CT head noncontrast ordered, CT angiogram head and neck vessels ordered. CT head noncontrast study, no acute changes. See radiology report. CT angiogram head and neck vessels, no significant narrowing, no thromboses. See radiology report. Initial troponin negative, we will repeat interval study. MRI brain without contrast, no acute infarct. See radiology report. Interval troponin also negative. Further workup for now as an outpatient, patient symptoms seemed to resolve, unclear if this is TIA versus primary intra-ocular problem. Follow up with Ophthalmology Wednesday next available clinic advised. Consider aspirin daily for now. Discharged home with family. Return precautions discussed. Discharge Plan Departure Patient Disposition: Home Clinical Impression: Visual changes Activity Restrictions/Additional Instructions: Mr Hensley, You had recent elective cardioversion for atrial fibrillation while taking your chronic Eliquis anticoagulation yesterday with your show card writer. Today you had left-sided visual field changes, somewhat worm-like floater like sensation, then blurred vision to the left, and some blurred vision also on the right eye, of unclear cause. You did not seem to have discomfort in your head, seems less likely a vascular/migraine headache, particularly with a floater like sensation. Concern for possible stroke, although this would be unusual on your Eliquis anticoagulation. CT head noncontrast initial study showed no acute changes. CT angiogram of the head in the neck vessels showed no areas of significant narrowing, nor any thrombosis clot problems. You were able to obtain MRI noncontrast study of the brain, no acute changes noted. Copies of the radiology dictated reports provided for discharge. Consider Ophthalmology follow up on Wednesday or earliest possible next week. Giiven contact for to local ophthalmologists offices, though they are not on-call now, Dr. Chinchilla and Dr. García, who frequently refer here. Or your own barrow worker helper if you have other resources. Continue taking your Eliquis anticoagulation until your show card writer advises it be stopped, or if you have indications to continue. Follow up earlier to this/nearest emergency department for any change worsening symptoms or any concerns prior. Thank you for allowing our team to take care of you today. Prescriptions: No Action Eliquis 5 mg tablet 5 mg PO BID Qty: 180 3RF metoprolol succinate 25 mg tablet extended release 24 hr 25 mg PO DAILY Qty: 90 3RF losartan 25 mg tablet 25 mg PO DAILY Qty: 90 3RF rosuvastatin 40 mg tablet 40 mg PO DAILY Qty: 90 3RF Referrals: Beatris Chinchilla MD [Physician] - Beau García MD [Physician] - Leatha Luke DO [Primary Care Provider] - Stand Alone Forms: Patient Portal/API/Survey
--- NOTE | 2024-10-13 11:21 | EKG_ITS ---
[address] [address] Test Date: 2024-10-13 Pat Name: Shukri Hensley Department: Room: Gender: Male Certified Coder: YANILOVELYJESSICA : 1955 Requested By: Order Number: [id number] Reading MD: Kenneth Stoll MD Measurements Intervals [place] Rate: 49 P: 43 HI: 156 QRS: 10 QRSD: 96 T: 32 QT: 470 QTc: 424 Interpretive Statements Sinus bradycardia Possible Left atrial enlargement Incomplete right bundle branch block (old) Electronically Signed On 10-13-2024 13:45:30 PDT by Kenneth Stoll MD
--- NOTE | 2024-10-13 11:30 | RT ---
Code Stroke called er8, airway patent and no distress noted. Pt alert and on room air.
[2024-10-13 11:35] LABS: Add Manual Diff / Slide Review NO; Basophils Absolute Auto 100 /uL (0-100); Basophils Percent Auto 1.4 % (0-2); Eosinophils Absolute Auto 200 /uL (0-450); Hematocrit 45.1 % (41-53); Hemoglobin 15.4 g/dL (13.5-17.5); Lymphocytes Absolute Auto 1400 /uL (1100-4500); Lymphocytes Percent Auto 26.9 % (25-40); Mean Corpuscular HGB Conc 34.1 % (30-36); Mean Corpuscular Hemoglobin 31.3 PG (26-34); Monocytes Absolute Auto 600 /uL (0-900); Monocytes Percent Auto 10.8 % (3-14); Neutrophils Absolute Auto 3100 /uL (1500-7000); Neutrophils Percent Auto 57.9 % (50-75); Platelet Count 205 X10^3/uL (150-400); Red Blood Cell Count 4.91 X10^6/uL (4.5-5.9); Red Cell Distribution Width 13.8 % (11.6-14.8); White Blood Cell Count 5.3 X10^3/uL (4.5-11.0)
[2024-10-13 11:45] LABS: Alanine Aminotransferase 46 IU/L (<50); Albumin 4.7 g/dL (3.5-5.0); Albumin Globulin Ratio 1.7 (1.0-2.8); Alkaline Phosphatase 51 U/L (38-126); Aspartate Aminotransferase 39 IU/L (17-59); BUN Creatinine Ratio 16.7 (6-22); Bilirubin Total 1.5 mg/dL (0.2-1.3); Blood Urea Nitrogen 15 mg/dL (9-20); Calcium 9.7 mg/dL (8.4-10.2); Carbon Dioxide 26 mmol/L (22-32); Chloride 103 mmol/L (98-107); Estimated Glomerular Filt Rate > 60 mL/min (>60); Globulin 2.7 g/dL (1.7-4.1); Glucose 106 mg/dL (80-110); HEMOLYSIS < 15 (0-50); Potassium 4.4 mmol/L (3.4-5.1); Sodium 139 mmol/L (137-145); Total Protein 7.4 g/dL (6.3-8.2)
--- NOTE | 2024-10-13 13:02 | DI.MRI.S_ITS ---
PROCEDURE: MR HEAD/BRAIN WO CON INDICATIONS: Acute vision change, possible stroke TECHNIQUE: Noncontrast axial T1 spin echo, axial T2 fast spin echo, sagittal and axial FLAIR, coronal T2 fast spin echo, axial gradient echo, axial diffusion and ADC through the brain. COMPARISON: [facility], CT, CT STROKE, 10/13/2024, 11:29. FINDINGS: Image quality: Diagnostic CSF spaces: Basal cisterns are patent. Lateral ventricles are symmetric. Volume: Volume loss. Periventricular white matter signal abnormality most commonly seen with small vessel disease. These findings are mild Brain: No acute diffusion restriction. No acute hematoma. Craniofacial structures: Unremarkable partially seen orbits IMPRESSION: No acute infarct. No hematoma identified Dictated by: Lance Velasco M.D. on 10/13/2024 at 15:11 Approved by: Lance Velasco M.D. on 10/13/2024 at 15:13
[2024-10-13 14:05] LABS: Creatine Kinase 69 U/L (55-170)
[2024-10-13 14:25] LABS: Troponin I < 0.012 ng/mL (0.01-0.034)
[2024-10-13 15:01] LABS: Troponin I < 0.012 ng/mL (0.01-0.034)
== END 2024-10-13 16:04 | disposition home or self-care (01) ==
PROVIDERS: Emergency Provider Emergency Medicine; PCP Family Medicine
DX: H53.9 Unspecified visual disturbance (principal); I48.91 Unspecified atrial fibrillation; Z79.01 Long term (current) use of anticoagulants; R00.1 Bradycardia, unspecified; I45.10 Unspecified right bundle-branch block; R41.82 Altered mental status, unspecified
CPT/HCPCS: 36415; 70450; 70496; 70498; 70551; 71045; 80053; 82550; 82962; 84484; 85025; 93005; 93010; 99283; 99284; Q9967

== ENCOUNTER → 2024-12-06 13:41 | Outpatient (CLI) | payer MEDICARE, OTHER, SELFPAY ==
--- NOTE | 2024-12-06 13:43 | DI.NM.S_ITS ---
PROCEDURE: NM EXERCISE TREADMILL NON NUC COMPARISON: None. INDICATIONS: heart failure FINDINGS: The patient exercised for 12 minutes and 55 seconds reaching 98% of maximum predicted heart rate. Excellent exercise tolerance (14.8METs, SASHA -65%). Borderline hypertensive response to exercise (resting BP 122/90mmHg, max BP 200/100mmHg). No ST changes, no ectopy, and no angina during the study. IMPRESSION: Low risk, normal treadmill ECG only stress test with excellent exercise tolerance (14.8METs, SASHA -65%). Borderline hypertensive response to exercise (resting BP 122/90mmHg, max BP 200/100mmHg). Dictated by: Agatha Thornton MD on 12/06/2024 at 16:21 Approved by: Agatha Thornton MD on 12/06/2024 at 16:23
--- NOTE | 2024-12-06 13:43 | DI.ECHO.S_ITS ---
[facility]+ [facility] : : [address] : : [place] : : [id number] : : Phone: [phone] Echocardiogram Report + + :Name: JOHN BARBOSA JR Study Date: 12/06/2024 Height: 74 in : :[facility] ReadingLocation: Weight: 190 lb : : Gender: Male BSA: 2.1 m2 : :: 1955 Age: 69 yrs BP: 170/100 mmHg: :Reason For Study: HEEART FAILURE : :Ordering Physician: MERY PIERCE Performed By: Lionel Polanco : :Referring: MERY PIERCE : + + Interpretation Summary 1. The left ventricular contractility is mildly compromised. Estimated ejection fraction is approximately 45 to 50%. No segmental wall motion abnormalities. No LVH. Unable to comment on diastolic function. 2. The right ventricle was not well-visualized. In limited views, the contractility appears to be preserved. 3. No obvious valvular abnormalities noted. 4. No obvious intracardiac masses or thrombi. 5. No hemodynamically significant pericardial effusion. 6. Low right-sided filling pressures. Conclusion: Mildly compromised left ventricular systolic function. When compared with previous echocardiogram, there is a slight improvement in the systolic function. Procedure: A two-dimensional transthoracic echocardiogram with color flow and Doppler was performed in limited views only. The study quality was technically good. Comparison is made with the echocardiogram of 09/11/2024. The patient was in normal sinus rhythm during the exam. Left Ventricle: The left ventricle is normal in size. There is normal left ventricular wall thickness. The ejection fraction is estimated to be 45-50%. Mitral Valve: There is no mitral regurgitation noted. Aortic Valve: No aortic regurgitation is present. Tricuspid Valve: No tricuspid regurgitation. Pulmonic Valve: There is no pulmonic valvular regurgitation. Great Vessels: The IVC is of normal diameter and collapses greater than 50% with a sniff. This suggests a low right atrial pressure of 3 mm Hg. Pericardium/ Pleura There is no pericardial effusion. There is no pleural effusion. MMode/2D Measurements & Calculations LVIDd: 5.9 cm LVIDs: 4.2 cm FS: 28.8 % IVSd: 1.0 cm LVPWd: 1.1 cm LV davies. diameter/BSA (cm/m^2): 2.8 LV sys. diameter/BSA (cm/m^2): 2.0 Reading Physician:DAVID
== END ==
LOC: ECHO 13:42
PROVIDERS: PCP Family Medicine; Referring Provider Internal Medicine; Visit Provider Internal Medicine
DX: I50.22 Chronic systolic (congestive) heart failure (principal)
CPT/HCPCS: 93017; 93307

== ENCOUNTER → 2025-06-04 07:38 | Outpatient (CLI) | payer MEDICARE, OTHER, SELFPAY ==
[2025-06-04 08:22] LABS: Add Manual Diff / Slide Review NO; Hematocrit 47.3 % (41-53); Hemoglobin 16.3 g/dL (13.5-17.5); Lymphocytes Absolute Auto 1600 /uL (1100-4500); Mean Corpuscular HGB Conc 34.4 % (30-36); Mean Corpuscular Hemoglobin 31.3 PG (26-34); Mean Corpuscular Volume 91.1 fL (80-100); Platelet Count 182 X10^3/uL (150-400)
[2025-06-04 08:49] LABS: Blood Urea Nitrogen 16 mg/dL (9-20); Calcium 9.4 mg/dL (8.4-10.2); Carbon Dioxide 29 mmol/L (22-32); Chloride 100 mmol/L (98-107); Estimated Glomerular Filt Rate > 60 mL/min (>60); Glucose 109 mg/dL (70-99); HEMOLYSIS < 15 (0-50); Potassium 4.8 mmol/L (3.4-5.1); Sodium 139 mmol/L (137-145)
== END ==
PROVIDERS: PCP Family Medicine; Referring Provider Family Medicine; Visit Provider Internal Medicine
DX: I48.91 Unspecified atrial fibrillation (principal)
CPT/HCPCS: 36415; 80048; 85025

== ENCOUNTER → 2025-06-26 09:38 | Outpatient (CLI) | payer MEDICARE, OTHER, SELFPAY ==
[2025-06-26 11:27] LABS: Blood Urea Nitrogen 13 mg/dL (9-20); Calcium 9.5 mg/dL (8.4-10.2); Carbon Dioxide 29 mmol/L (22-32); Chloride 103 mmol/L (98-107); Estimated Glomerular Filt Rate > 60 mL/min (>60); Glucose 97 mg/dL (70-99); HEMOLYSIS < 15 (0-50); Potassium 4.6 mmol/L (3.4-5.1); Sodium 140 mmol/L (137-145)
== END ==
PROVIDERS: PCP Family Medicine; Referring Provider Internal Medicine; Visit Provider Internal Medicine
DX: I48.91 Unspecified atrial fibrillation (principal)
CPT/HCPCS: 36415; 80048